=== PATIENT | male | born 2005 | race Caucasian/White ===

== ENCOUNTER 2023-12-04 06:32 | Outpatient (REF) | payer OTHER, SELFPAY ==
--- NOTE | ~2023-12-04 | US_ITS ---
EXAMINATION: US SCROTUM CLINICAL INFORMATION: Pea-sized lump in the mid scrotum posterior. COMPARISON: None available. TECHNIQUE: A sonogram of the scrotum was performed assessing schwarz-scale appearance and color Doppler flow. Spectral Doppler analysis of the arterial and venous flow were performed in the testes bilaterally. FINDINGS: RIGHT: Right testicle measures 4.4 x 2.8 x 3.8 cm, volume 25.0 mL. No focal testicular parenchymal lesions are visualized. Spectral Doppler analysis of the arterial and venous flow is normal in the right testis. Right epididymal head is normal in size. No right hydrocele or varicocele is seen. Right epididymal Doppler flow is normal. LEFT: Left testicle measures 5.4 x 2.6 x 3.4 cm, volume 25 mL. No focal testicular parenchymal lesions are visualized. There are 2 adjacent bright areas of calcifications seen in the left testis. No associated mass. Spectral Doppler analysis of the arterial and venous flow is normal in the left testis. Left epididymal head is normal in size. A 5 mm cyst is seen in the head of the epididymis. No varicocele is seen. There is a cystic collection adjacent to the epididymis with low level echoes in it which may represent a spermatocele. Left epididymal Doppler flow is normal. Specifically, in the area of the pea-sized midline lump palpated by the patient, no abnormality is seen. US/US scrotum IMPRESSION: 1. No significant abnormality is seen. 2. Incidental note made of 2 adjacent calcifications in the left testis (testicular microlithiasis), 5 mm left epididymal head cyst and a probable spermatocele adjacent to the left epididymis. Electronically signed by: Alexander Julien MD 12/04/2023 12:33 PM EDT
== END 2023-12-04 06:33 | disposition home or self-care (01) ==
LOC: HO.UMASIMG 06:32
PROVIDERS: Visit Provider Physician Assistant
DX: H00.14 Chalazion left upper eyelid (principal); N50.9 Disorder of male genital organs, unspecified
CPT/HCPCS: 76870